=== PATIENT | male | born 1980 | race Caucasian/White ===

== ENCOUNTER 2017-05-31 07:50 | Emergency (ER) | payer OTHER ==
[~2017-05-31] VITALS: Ht 180.3 cm; Wt 106.6 kg
[~2017-05-31 07:50] MED LIST: AZITHROMYCIN 2250 MG PO; BUTALB-APAP-CA1 EACH PO; CELEXA10 MG PO; CYCLOBENZAPRINE10 MG PO; GABAPENTIN 100100 MG PO; HYDROCODONE-AP1 EAC6 PO; IBUPROFEN 800800 M1 PO; IBUPROFEN 800800 MG PO; KEFLEX500 MG PO; LEVAQUIN 500 M500 M2 PO; LEVAQUIN 500 M500 M5 PO; MEDROLDOSEPACK PO; NOHOMEMEDICATIONS; OMEPRAZOLE 20 M20 MG PO; PEPCID20 MG PO; SALINE NASAL SP30 ML NS; TESSALON200 MG PO; TRAMADOL 50 MG50 MG PO; ULTRAM 50MG TAB50 MG PO; XANAX 0.5 MG0.5 MG PO; ZANTAC 150MG T150 MG PO
[2017-05-31 07:57] VITALS: BP 142/72
[2017-05-31] MEDS ORDERED: NORCO 5-325 TA1 EACH PO (08:18)
[2017-05-31] MEDS ORDERED: FLEXERIL PO (08:18)
== END 2017-05-31 08:25 | disposition home or self-care (01) ==
LOC: M.ERS 07:50
DX: M54.5 Low back pain (principal); Z90.89 Acquired absence of other organs; Z88.0 Allergy status to penicillin

== ENCOUNTER 2017-08-12 20:55 | Emergency (ER) | payer OTHER ==
[~2017-08-12] VITALS: Ht 180.3 cm; Wt 104.3 kg
[~2017-08-12 20:55] MED LIST changes: +FLEXERIL PO; +NORCO 5-325 TA1 EACH PO
[2017-08-12 21:21] VITALS: BP 125/75
[2017-08-12] MEDS ORDERED: FLEXERIL PO (21:27)
[2017-08-12] MEDS ORDERED: ULTRAM 50MG TAB50 MG PO (21:28)
[2017-08-12] MEDS ORDERED: IBU800 MG PO (21:36)
== END 2017-08-12 21:37 | disposition home or self-care (01) ==
LOC: M.ERS 20:55
DX: M54.5 Low back pain (principal); Z88.0 Allergy status to penicillin

== ENCOUNTER 2017-09-01 19:42 | Emergency (ER) | payer OTHER ==
[~2017-09-01] VITALS: Ht 180.3 cm; Wt 104.3 kg
[~2017-09-01 19:42] MED LIST changes: +IBU800 MG PO
[2017-09-01] MEDS ORDERED: KEFLEX500 M1 PO (20:45)
[2017-09-01 20:58] VITALS: BP 138/79
== END 2017-09-01 20:59 | disposition home or self-care (01) ==
LOC: M.ERS 19:42
DX: H92.09 Otalgia, unspecified ear (principal); J02.0 Streptococcal pharyngitis; Z88.0 Allergy status to penicillin

== ENCOUNTER 2017-11-29 10:22 | Emergency (ER) | payer OTHER ==
[~2017-11-29] VITALS: Ht 180.3 cm; Wt 104.3 kg
[~2017-11-29 10:22] MED LIST changes: +KEFLEX500 M1 PO
[2017-11-29] MEDS ORDERED: NABUMETONE 750750 M1 PO (11:05)
[2017-11-29] MEDS ORDERED: KEFLEX500 M1 PO (11:05)
[2017-11-29] MEDS ORDERED: FLONASE 0.05%50 MCG NASAL (11:05)
[2017-11-29] MEDS ORDERED: TRAMADOL 50 MG50 MG PO (11:09)
[2017-11-29] MEDS ORDERED: IBUPROFEN 800800 M1 PO (11:42)
[2017-11-29 12:23] VITALS: BP 173/56
== END 2017-11-29 12:24 | disposition home or self-care (01) ==
LOC: M.ERS 10:22
DX: R51 Headache (principal); B07.0 Plantar wart; J06.9 Acute upper respiratory infection, unspecified; Z88.0 Allergy status to penicillin; Z88.6 Allergy status to analgesic agent

== ENCOUNTER 2018-05-02 10:11 | Emergency (ER) | payer OTHER ==
[~2018-05-02] VITALS: Ht 180.3 cm; Wt 108.9 kg
[~2018-05-02 10:11] MED LIST changes: +FLONASE 0.05%50 MCG NASAL; +NABUMETONE 750750 M1 PO
[2018-05-02] MEDS ORDERED: NABUMETONE 750750 M1 PO (11:08)
[2018-05-02] MEDS ORDERED: DOXYCYCLINE 10100 MG PO (11:08)
[2018-05-02] MEDS ORDERED: TESSALON PERLE100 MG PO (11:08)
[2018-05-02 11:20] VITALS: BP 145/70
== END 2018-05-02 11:22 | disposition home or self-care (01) ==
LOC: M.ERS 10:11
DX: J06.9 Acute upper respiratory infection, unspecified (principal); Z88.0 Allergy status to penicillin; Z88.6 Allergy status to analgesic agent

== ENCOUNTER 2018-06-28 16:25 | Emergency (ER) | payer OTHER ==
[~2018-06-28] VITALS: Ht 175.3 cm; Wt 90.7 kg
[~2018-06-28 16:25] MED LIST changes: +DOXYCYCLINE 10100 MG PO; +TESSALON PERLE100 MG PO
[2018-06-28] MEDS ORDERED: IBUPROFEN 800800 M1 PO (17:16)
[2018-06-28 17:26] VITALS: BP 131/76
== END 2018-06-28 17:27 | disposition home or self-care (01) ==
LOC: M.ERS 16:25
DX: M79.642 Pain in left hand (principal); Z88.0 Allergy status to penicillin; Z88.6 Allergy status to analgesic agent

== ENCOUNTER 2019-10-04 08:07 | Emergency (ER) | payer OTHER ==
[~2019-10-04] VITALS: Ht 180.3 cm; Wt 113.4 kg
[2019-10-04] MEDS ORDERED: PREDNISONE 20 M20 M1 PO (09:15)
[2019-10-04] MEDS ORDERED: ZPAK PO (09:15)
[2019-10-04 09:50] VITALS: BP 124/83
== END 2019-10-04 09:50 | disposition home or self-care (01) ==
LOC: M.ERS 08:07
DX: J06.9 Acute upper respiratory infection, unspecified (principal); F17.210 Nicotine dependence, cigarettes, uncomplicated; Z88.0 Allergy status to penicillin; Z88.6 Allergy status to analgesic agent